=== PATIENT | male | born 1955 | race African-American/Black ===

== ENCOUNTER 2018-09-07 10:59 | Emergency (ER) | payer MEDICAID ==
[~2018-09-07] VITALS: Ht 182.9 cm; Wt 81.8 kg
[2018-09-07] MEDS ORDERED: IBUPROFEN 800 MG TABLET PO ONE (12:15)
[2018-09-07 12:50] VITALS: BP 127/77
== END 2018-09-07 12:53 | disposition home or self-care (01) ==
LOC: EMS 11:02
DX: J06.9 Acute upper respiratory infection, unspecified (principal)

== ENCOUNTER 2018-12-11 10:13 | Emergency (ER) | payer SELFPAY ==
[~2018-12-11] VITALS: Ht 180.3 cm; Wt 79.5 kg
[2018-12-11 11:44] LABS: GLUCOSE,POINT OF CARE 88 MG/DL (70-110)
[2018-12-11] MEDS ORDERED: KETOROLAC TROMETHAMINE 30 MG/ML VIAL IM ONE (11:45)
[2018-12-11 12:38] VITALS: BP 123/68
== END 2018-12-11 12:38 | disposition home or self-care (01) ==
LOC: EMS 10:13
DX: M72.2 Plantar fascial fibromatosis (principal)
CPT/HCPCS: 82962; 96372; 99283; J1885; 82948